=== PATIENT | female | born 1980 | race Caucasian/White ===

== ENCOUNTER 2018-07-31 19:29 | Emergency (ER) | payer SELFPAY ==
[2018-07-31 19:29] VITALS: BP 134/78; PULSE 87; RESP 18; O2SAT 97
[2018-07-31 19:30] VITALS: BP 134/78; PULSE 90; RESP 17; TEMP 36.6; O2SAT 96; BMI 41.2
--- NOTE | 2018-07-31 19:42 | ED.DCSUM_ITS ---
- ER Visit Summary Date of Service: 07/31/18 Chief Complaint: Headache History of Present Illness: The patient is a 38 F who presents with a headache. It started 2 days ago. She describes a stabbing throughout her head. Does not radiate. Nothing makes it better or worse. She has associated nausea with no vomiting. She admits to photophobia. She denies any falls. She does have a history of migraine headaches in the past. She tried Motrin and aspirin without any relief. She denies any fevers. Physical Examination: Vital signs reviewed. HEENT exam unremarkable. Heart is regular rate and rhythm without murmurs. Lungs are clear to auscultation. Abdomen is soft and nontender. Extremities reveal no edema. Skin exam normal. Neurologic exam normal. Test Results: None performed Emergency Department Course and Treatment: Patient was given Compazine Benadryl and Toradol. Patient feels better. She will be discharged use her home medications. Treatment Plan: [] Disposition: Discharge Impression: Migraine headache This note was generated with [employer] dictation software. It may contain incorrect words, spelling, and punctuation that were not noted in review of the chart prior to signing ED Disposition - Plan for ED Patient: Referrals: Care Physician,No Primary [Primary Care Provider] -
[2018-07-31] MEDS: DiphenhydrAMINE 50 MG/ML Syringe 25 MG IV (19:52)
[2018-07-31] MEDS: 0.9% Normal Saline 1,000 ML 999 ML IV (19:52)
[2018-07-31] MEDS: proCHLORPERazine 10 MG/2 ML Vial IV (19:52)
--- NOTE | 2018-07-31 21:25 | ED.DEP ---
ED Disposition - Plan for ED Patient: Disposition: Home or Assisted Living Instructions: ED Headache Migraine Referrals: Care Physician,No Primary [Primary Care Provider] -
== END 2018-07-31 21:32 | disposition home or self-care (01) ==
PROVIDERS: Emergency Provider Emergency Medicine
DX: G43.909 Migraine, unspecified, not intractable, without status migrainosus (principal); Z72.0 Tobacco use
CPT/HCPCS: 96361; 96374; 96375; 99284; J7030; A4216